=== PATIENT | female | born 1950 | race Caucasian/White ===

== ENCOUNTER 2019-01-17 07:23 | Day surgery (SDC) | payer MEDICARE, BC ==
[2019-01-17] MEDS ORDERED: PROPOFOL 500 MG/50 ML EMU IV ONE (07:36)
[2019-01-17] MEDS ORDERED: LIDOCAINE HCL 1% MPF 30 SOL ONE (07:36)
[2019-01-17 09:23] VITALS: RESP 16
[2019-01-17 09:28] VITALS: O2SAT 96
[2019-01-17 09:40] VITALS: BP 114/77; PULSE 78; TEMP 97.5
== END 2019-01-17 09:55 | disposition home or self-care (01) | DRG 951 ==
LOC: SURG 07:23
PROVIDERS: ATTEND Surgery
DX: Z12.11 Encounter for screening for malignant neoplasm of colon (principal); Z80.0 Family history of malignant neoplasm of digestive organs
CPT/HCPCS: J2001; J2704